=== PATIENT | female | born 1995 | race Caucasian/White ===

== ENCOUNTER 2022-06-13 06:32 | Emergency (ER) | payer MEDICAID ==
[~2022-06-13 06:32] MED LIST: ALBUTEROL (0.083%) 2.5MG/3ML NEB ONE; METHYLPREDNISOLONE SOD SUCC 125 MG/2 ML VIAL ONE
[2022-06-13 07:00] VITALS: BP 93/48
[2022-06-13 15:20] LABS: CHLORIDE 109 mEq/L (98-107); ETHANOL BLOOD 147 mg/dL
[2022-06-13 19:49] LABS: BASOPHILS % 0.8 % (0.0-2.0); EOSINOPHILS % 0.7 % (0.0-5.0); HEMATOCRIT. 42.4 % (36.0-48.0); HEMOGLOBIN. 13.8 g/dL (12.0-16.0); LYMPHOCYTES % 18.1 % (20.0-50.0); MEAN CORPUSCULAR HEMOGLOBIN 29.3 pg (28.0-32.0); MEAN CORPUSCULAR VOLUME 90.2 fL (81.0-99.0); MEAN PLATELET VOLUME 8.6 fl (7.4-10.4); NEUTROPHILS % 76.4 % (40.0-76.0); PLATELET 292 x1000/uL (130-400); RED CELL DISTRIBUTION WIDTH 13.1 % (11.6-14.6)
== END 2022-06-13 14:54 | disposition home or self-care (01) ==
LOC: ER 06:32
DX: J45.901 Unspecified asthma with (acute) exacerbation (principal)
CPT/HCPCS: 36415; 71045; 80053; 80320; 85025; 94640; 99284; J2930; Z7610; G0480